=== PATIENT | male | born 2005 | race Caucasian/White ===

== ENCOUNTER 2024-02-02 10:43 | Emergency (ER) | payer BC, MEDICAID, OTHER ==
[2024-02-02] MEDS: Diphtheria,Pertussis(Acell),Tetanus Vaccine 0.5 ML Syringe IM ONE (13:23)
[2024-02-02] MEDS: Lidocaine 1% 10 ML MDV INJECT ONE (13:24)
== END 2024-02-02 14:20 | disposition home or self-care (01) ==
LOC: JD.ED 10:43
DX: S51.811A Laceration without foreign body of right forearm, initial encounter (principal); Z23 Encounter for immunization; W26.8XXA Contact with other sharp object(s), not elsewhere classified, initial encounter
CPT/HCPCS: 12001; 90471; 90715; 99282-25; 99283; J3490